=== PATIENT | female | born 2000 | race Caucasian/White ===

== ENCOUNTER → 2024-03-18 14:06 | Outpatient (BNVA) | payer BC, SELFPAY | PROVIDERS: Visit Provider Nurse Practitioner Family | DX: R21 Rash and other nonspecific skin eruption (principal); N39.0 Urinary tract infection, site not specified; B95.2 Enterococcus as the cause of diseases classified elsewhere; R30.0 Dysuria | CPT/HCPCS: 81000; 87086; 87491; 87591; 87661 ==